=== PATIENT | female | born 1990 | race Caucasian/White ===

== ENCOUNTER 2018-09-20 16:06 | Emergency (ER) | payer BC, OTHER ==
--- NOTE | 2018-09-20 17:41 | ER Document Report ---
ED Medical Screen (RME) - General Chief Complaint: Vaginal Bleeding Stated Complaint: VAGINAL BLEEDING Time Seen by Provider: 09/20/18 17:29 Mode of Arrival: Ambulatory Information source: Patient Notes: This is a 28-year-old female 1 para 0, who is 19 weeks and 1 day who presents to the emergency room with passing some bright red blood. Patient denies any abdominal pain or abdominal cramping. Patient does have a history of a LEEP so [facility] and she is been getting transvaginal sonography for cervical length every 2 weeks. Patient 's last cervical length was 3.9 cm. Discussed with ultrasound who will assess patient with ultrasound. They may be able to see the cervical length transabdominally, they will do a labial ultrasound if need be. Discussed case with Dr. Walden regarding the above. TRAVEL OUTSIDE OF THE [place] IN LAST 30 DAYS: No - Related Data Allergies/Adverse Reactions: No Known Allergies Allergy (Unverified 09/20/18 16:10) Past Medical History - General Last Menstrual Period: 05/02/2018 - Social History Chew tobacco use (# tins/day): No Frequency of alcohol use: None Drug Abuse: None Renal/ Medical History: Denies: Hx Peritoneal Dialysis Physical Exam - Vital signs Vitals: Temp Pulse Resp BP Pulse Ox 98.2 F 115 H 12 132/68 H 99 09/20/18 16:12 09/20/18 16:12 09/20/18 16:12 09/20/18 16:12 09/20/18 16:12 Course - Vital Signs Vital signs: Temp Pulse Resp BP Pulse Ox 98.2 F 115 H 12 132/68 H 99 09/20/18 16:12 09/20/18 16:12 09/20/18 16:12 09/20/18 16:12 09/20/18 16:12 Doctor's Discharge - Discharge Referrals: GABINO GARCIA MD [Primary Care Provider] - Follow up as needed
[2018-09-20 18:44] LABS: ABSOLUTE EOSINOPHILS # (AUTO) 0.1 10^3/uL (0.0-0.6); ABSOLUTE LYMPHOCYTES (AUTO) 1.6 10^3/uL (0.5-4.7); ABSOLUTE MONOCYTES (AUTO) 0.8 10^3/uL (0.1-1.4); ABSOLUTE NEUT (AUTO) 8.8 10^3/uL (1.7-8.2); BASOPHILS % (AUTO) 0.1 % (0-2); EOSINOPHILS % (AUTO) 0.6 % (0-6); HEMATOCRIT 34.3 % (36.0-47.0); HEMOGLOBIN 11.9 g/dL (12.0-15.5); LYMPHOCYTES % (AUTO) 14.1 % (13-45); MEAN CORPUSCULAR HEMOGLOBIN 30.6 pg (27.0-33.4); MEAN CORPUSCULAR HGB CONC 34.6 g/dL (32.0-36.0); MEAN CORPUSCULAR VOLUME 89 fl (80-97); MONOCYTES % (AUTO) 6.7 % (3-13); PLATELET COUNT 287 10^3/uL (150-450); RED BLOOD COUNT 3.87 10^6/uL (3.72-5.28); RED CELL DISTRIBUTION WIDTH 12.6 % (11.5-14.0); SEGMENTED NEUTROPHILS % (AUTO) 78.5 % (42-78); TOTAL CELLS COUNTED % (AUTO) 100 %; WHITE BLOOD COUNT 11.3 10^3/uL (4.0-10.5)
[2018-09-20 18:56] LABS: APPEARANCE,URINE SLIGHTLY-CLOUDY; BILIRUBIN,URINE NEGATIVE (NEGATIVE); COLOR,URINE YELLOW; GLUCOSE, URINE 50 mg/dL (NEGATIVE); KETONES,URINE NEGATIVE (NEGATIVE); LEUKOCYTE ESTERASE,URINE NEGATIVE (NEGATIVE); NITRITE,URINE NEGATIVE (NEGATIVE); PROTEIN,URINE NEGATIVE (NEGATIVE); URINE SPECIFIC GRAVITY 1.012; UROBILINOGEN,URINE NEGATIVE mg/dL (<2.0)
--- NOTE | 2018-09-20 19:05 | ER Document Report ---
ED GI/ - General Chief Complaint: Vaginal Bleeding Stated Complaint: VAGINAL BLEEDING Time Seen by Provider: 09/20/18 17:29 Mode of Arrival: Ambulatory Notes: Patient is a 28-year-old female, at 19 weeks gestation, comes emergency department for chief complaint of vaginal bleeding. She states that she noticed some blood in the toilet and some spotting when wiping. She denies any pain or cramping. She denies nausea, vomiting, fever. Past medical history of a LEEP procedure, as a result she has been getting cervical length tested every 2 weeks (she has had this twice now). Previous cervical length with 3.9 cm. TRAVEL OUTSIDE OF THE [place] IN LAST 30 DAYS: No - Related Data Allergies/Adverse Reactions: No Known Allergies Allergy (Unverified 09/20/18 16:10) Past Medical History - General Information source: Patient Last Menstrual Period: 05/02/2018 - Social History Smoking Status: Former Smoker Chew tobacco use (# tins/day): No Frequency of alcohol use: None Drug Abuse: None Lives with: Family Family History: Reviewed & Not Pertinent Patient has suicidal ideation: No Patient has homicidal ideation: No - Medical History Medical History: Negative Renal/ Medical History: Denies: Hx Peritoneal Dialysis Surgical Hx: Negative - Immunizations Immunizations up to date: Yes Hx Diphtheria, Pertussis, Tetanus Vaccination: Yes Review of Systems - Review of Systems Constitutional: No symptoms reported EENT: No symptoms reported Cardiovascular: No symptoms reported Respiratory: No symptoms reported Gastrointestinal: See HPI Genitourinary: See HPI Female Genitourinary: See HPI Musculoskeletal: No symptoms reported Skin: No symptoms reported Hematologic/Lymphatic: No symptoms reported Neurological/Psychological: No symptoms reported Physical Exam - Vital signs Vitals: Temp Pulse Resp BP Pulse Ox 98.2 F 115 H 12 132/68 H 99 09/20/18 16:12 09/20/18 16:12 09/20/18 16:12 09/20/18 16:12 09/20/18 16:12 - Notes Notes: GENERAL: Alert, interacts well. No acute distress. HEAD: Normocephalic, atraumatic. EYES: Pupils equal, round, and reactive to light. Extraocular movements intact. ENT: Oral mucosa moist, tongue midline. Oropharynx unremarkable. Airway patent. Nares patent, no nasal septal hematoma, TM's intact. NECK: Full range of motion. Supple. Trachea midline. LUNGS: Clear to auscultation bilaterally, no wheezes, rales, or rhonchi. No respiratory distress. HEART: Regular rate and rhythm. No murmur ABDOMEN: Soft, non-tender. Non-distended. Bowel sounds present in all 4 quadrants. GENITOURINARY: Deferred EXTREMITIES: Moves all 4 extremities spontaneously. No edema, normal radial and dorsalis pedis pulses bilaterally. No cyanosis. BACK: no cervical, thoracic, lumbar midline tenderness. No saddle anesthesia, normal distal neurovascular exam. NEUROLOGICAL: Alert and oriented x3. Normal speech. [cranial nerves II through XII grossly intact]. PSYCH: Normal affect, normal mood. SKIN: Warm, dry, normal turgor. No rashes or lesions noted. Course - Re-evaluation Re-evalutation: CBC unremarkable, RhoGam is indicated, RhoGam was given. Urinalysis nonspecific. Ultrasound with normal parameters except for cervix which is 3.1 cm instead of 3.9 as reported previously by patient. I have no data on this in the system. I did call and speak with Dr. Walden, PRODUCT MARKETING DIRECTOR, he does not have any additional recommendations at this time based on patient's presentation, exam, workup which was reported. He states that patient needs pelvic rest and close follow-up. I discussed this in the report with patient in detail, patient and significant other state understanding and agreement. - Vital Signs Vital signs: Temp Pulse Resp BP Pulse Ox 98.6 F 98 18 121/65 98 09/20/18 21:13 09/20/18 21:13 09/20/18 21:13 09/20/18 21:13 09/20/18 21:13 - Laboratory Result Diagrams: 09/20/18 18:15 Laboratory results interpreted by me: 09/20/18 09/20/18 18:15 18:15 WBC 11.3 H Hgb 11.9 L Hct 34.3 L Seg Neutrophils % 78.5 H Absolute Neutrophils 8.8 H Urine Glucose (UA) 50 H Urine Blood MODERATE H Discharge - Discharge Clinical Impression: Vaginal bleeding before 22 weeks gestation Condition: Stable Disposition: HOME, SELF-CARE Additional Instructions: The appears normal at this time. The cervical length is 3.1 on the measurement today. I called and spoke with Dr. Rylan Walden. Recommendation is pelvic rest and close follow-up within a week for additional evaluation and management. Avoid lifting/jumping/running/sexual intercourse until cleared by PRODUCT MARKETING DIRECTOR. Return the emergency department for any concerning symptoms including heavy bleeding, passing out, severe pain, or any other concerning or worsening symptoms. Forms: Return to Work Referrals: HENRIQUE WALDEN MD [ACTIVE STAFF] - Follow up tomorrow
--- NOTE | 2018-09-20 19:05 | RADIOLOGY REPORT (SQ) ---
EXAM DESCRIPTION: U/S PROFILE W/O STRESS COMPLETED DATE/TIME: 09/20/2018 6:57 pm REASON FOR STUDY: BPP and cervical length COMPARISON: None. TECHNIQUE: Limited banda-scale realtime and static images of the fetus to measure specified parameter s. LIMITATIONS: None. FINDINGS: HEART RATE: 147 beats per minute. WADE: 11.6 cm. BREATHING MOVEMENT: 2 points. MOVEMENT: 2 points. POSTURE AND TONE: 2 points. QUALITATIVE WADE: 2 points. OTHER: Cervix 3.1 cm and closed. Placenta is posterior. Vertex lie. IMPRESSION: BIOPHYSICAL PROFILE: 05/26. Trimester of : Seconds trimester COMMENT: BREATHING MOVEMENTS: 2 POINTS: PRESENT 0 POINTS: ABSENT MOTION: 2 POINTS: PRESENT 0 POINTS: ABSENT TONE: 2 POINTS: PRESENT 0 POINTS: ABSENT AMNIOTIC FLUID VOLUME: 2 POINTS: LARGEST POCKET GREATER THAN 2 CM DEPTH. 0 POINTS: NO POCKET OF 2 CM. TECHNICAL DOCUMENTATION: JOB ID: [id number] [employer]- All Rights Reserved Reading location - IP/workstation name: [email or web address]
[2018-09-20 21:14] VITALS: BP 121/65
== END 2018-09-20 21:14 | disposition home or self-care (01) ==
LOC: ER 16:06
DX: O46.92 Antepartum hemorrhage, unspecified, second trimester (principal); Z3A.19 19 weeks gestation of pregnancy; Z98.890 Other specified postprocedural states; Z87.891 Personal history of nicotine dependence
CPT/HCPCS: 99284; 96372; 86900; 86901; 36415; 86850; 85025; 81001; 76819; J2790

== ENCOUNTER 2019-02-01 10:23 | Outpatient (CLI) | payer BC ==
--- NOTE | 2019-02-01 12:26 | Non Stress Test Report ---
Non Stress Test Datetime Report Generated by CPN: 02/01/2019 12:26 DEMOGRAPHIC EGA NST: 38.1 INDICATION Indication for Study: Ordered by Provider MONITORING Monitor Explained: Monitor Explained; Test Explained; Patient Verbalized Understanding Time on Monitor: 02/01/2019 10:31 Time off Monitor: 02/01/2019 11:34 NST Duration: 63 NST INTERVENTIONS NST Interventions: PO Hydration; Reposition Patient Physician Notified NST: Kristie Pena, [facility] BABY A: [id number] BABY A Movement : Present Movement : Present Contraction Frequency : NONE FHR Baseline : 135 Accelerations : 15X15 Decelerations : None Variability : Moderate 6-25bpm NST Review: Meets Criteria for Reactive NST NST Review and Verified By : MORRIS Garcia Results: Reactive NST REPORT Report Trigger: Send Report
--- NOTE | 2019-02-01 12:50 | RADIOLOGY REPORT (SQ) ---
EXAM DESCRIPTION: U/S OB LIMITED COMPLETED DATE/TIME: 02/01/2019 12:31 pm REASON FOR STUDY: check WADE COMPARISON: None. TECHNIQUE: Limited transabdominal grayscale ultrasound for evaluation of specific requested obstetri karen parameters. LIMITATIONS: None. FINDINGS: WDAE: 7.1 cm. FHR: 136 beats per minute. PRESENTATION: Cephalic. PLACENTA: Posterior ANATOMY: Not assessed OTHER: No other significant findings. IMPRESSION: LIMITED OBSTETRICAL ULTRASOUND WITH MEASURED PARAMETERS DELINEATED ABOVE. Trimester of : Third trimester - 28 weeks to delivery. TECHNICAL DOCUMENTATION: JOB ID: [id number] [employer]- All Rights Reserved Reading location - IP/workstation name: [email or web address]
== END 2019-02-01 12:45 | disposition home or self-care (01) ==
LOC: LC 10:23
PROVIDERS: ATTEND Obstetrics & Gynecology
PROC: 4A1HXCZ Monitoring of Products of Conception, Cardiac Rate, External Approach (ICD-10-PCS; principal; 2019-02-01)
DX: O47.1 False labor at or after 37 completed weeks of gestation (principal); Z3A.38 38 weeks gestation of pregnancy
CPT/HCPCS: 59025; 76815

== ENCOUNTER 2019-02-03 15:01 | Outpatient (CLI) | payer BC ==
--- NOTE | 2019-02-03 17:45 | Non Stress Test Report ---
Non Stress Test Datetime Report Generated by CPN: 02/03/2019 17:45 DEMOGRAPHIC EGA NST: 38.3 INDICATION Indication for Study: Ordered by Provider MONITORING Monitor Explained: Monitor Explained; Test Explained; Patient Verbalized Understanding Time on Monitor: 02/03/2019 15:08 Time off Monitor: 02/03/2019 16:06 NST Duration: 58 NST INTERVENTIONS NST Interventions: PO Hydration Physician Notified NST: P.Centeno, CNM BABY A: [id number] BABY A Movement : Present Contraction Frequency : irritability FHR Baseline : 130 Accelerations : 15X15 Decelerations : None Variability : Moderate 6-25bpm NST Review: Meets Criteria for Reactive NST NST Review and Verified By : Radha Vance RN NST Results: Reactive NST REPORT Report Trigger: Send Report
== END 2019-02-03 16:12 | disposition home or self-care (01) ==
LOC: LC 15:01
PROVIDERS: ATTEND Obstetrics & Gynecology
PROC: 4A1HXCZ Monitoring of Products of Conception, Cardiac Rate, External Approach (ICD-10-PCS; principal; 2019-02-03)
DX: Z34.83 Encounter for supervision of other normal pregnancy, third trimester (principal); Z3A.38 38 weeks gestation of pregnancy
CPT/HCPCS: 59025

== ENCOUNTER 2019-02-07 14:35 | Outpatient (CLI) | payer BC ==
[2019-02-07 15:19] LABS: HEMATOCRIT 32.8 % (36.0-47.0); HEMOGLOBIN 11.2 g/dL (12.0-15.5); MEAN CORPUSCULAR HEMOGLOBIN 30.7 pg (27.0-33.4); MEAN CORPUSCULAR HGB CONC 34.3 g/dL (32.0-36.0); MEAN CORPUSCULAR VOLUME 90 fl (80-97); PLATELET COUNT 196 10^3/uL (150-450); RED BLOOD COUNT 3.66 10^6/uL (3.72-5.28); RED CELL DISTRIBUTION WIDTH 13.9 % (11.5-14.0); WHITE BLOOD COUNT 7.5 10^3/uL (4.0-10.5)
[2019-02-07 15:30] LABS: APPEARANCE,URINE SLIGHTLY-CLOUDY; BILIRUBIN,URINE NEGATIVE (NEGATIVE); COLOR,URINE YELLOW; GLUCOSE, URINE NEGATIVE (NEGATIVE); KETONES,URINE NEGATIVE (NEGATIVE); LEUKOCYTE ESTERASE,URINE NEGATIVE (NEGATIVE); NITRITE,URINE NEGATIVE (NEGATIVE); PROTEIN,URINE NEGATIVE (NEGATIVE); URINE SPECIFIC GRAVITY 1.017; UROBILINOGEN,URINE NEGATIVE mg/dL (<2.0)
[2019-02-07 15:39] LABS: ALANINE AMINOTRANSFERASE 18 U/L (9-52); ALBUMIN 3.1 g/dL (3.5-5.0); ALKALINE PHOSPHATASE 118 U/L (38-126); ANION GAP 5 (5-19); ASPARTATE AMINO TRANSFERASE 19 U/L (14-36); BILIRUBIN,DIRECT 0.1 mg/dL (0.0-0.4); BILIRUBIN,TOTAL 0.4 mg/dL (0.2-1.3); BLOOD UREA NITROGEN 9 mg/dL (7-20); CALCIUM 9.4 mg/dL (8.4-10.2); CARBON DIOXIDE 21 mmol/L (22-30); CHLORIDE 110 mmol/L (98-107); GLUCOSE 95 mg/dL (75-110); POTASSIUM 4.3 mmol/L (3.6-5.0); SODIUM 136.4 mmol/L (137-145); TOTAL PROTEIN 5.9 g/dL (6.3-8.2); URIC ACID 4.3 mg/dL (2.5-6.2)
[2019-02-07 15:48] LABS: URINE AMPHETAMINES SCREEN NEGATIVE; URINE BARBITURATES SCREEN NEGATIVE; URINE BENZODIAZEPINES SCREEN NEGATIVE; URINE COCAINE SCREEN NEGATIVE; URINE MARIJUANA (THC) SCREEN NEGATIVE; URINE METHADONE SCREEN NEGATIVE; URINE PHENCYCLIDINE SCREEN NEGATIVE
[2019-02-07 15:50] LABS: UR PRO/CREAT RATIO RESULT 0.2 mg/mg (0.0-0.2); URINE CREATININE 84.6 mg/dL (16-327); URINE PROTEIN 20.7 mg/dL (<12)
== END 2019-02-07 16:45 | disposition home or self-care (01) ==
LOC: LC 14:35
PROVIDERS: ATTEND Obstetrics & Gynecology
PROC: 4A1HXCZ Monitoring of Products of Conception, Cardiac Rate, External Approach (ICD-10-PCS; principal; 2019-02-07)
DX: O16.3 Unspecified maternal hypertension, third trimester (principal); Z3A.39 39 weeks gestation of pregnancy
CPT/HCPCS: 36415; 59025; 80053; 80307; 81005; 82570; 84156; 84550; 85027

== ENCOUNTER 2019-02-11 11:08 | Outpatient (CLI) | payer BC ==
--- NOTE | 2019-02-11 11:16 | Non Stress Test Report ---
Non Stress Test Datetime Report Generated by CPN: 02/11/2019 11:15 DEMOGRAPHIC Test Number: 3 EGA NST: 39.0 INDICATION Indication for Study: Ordered by Provider VITAL SIGNS Temperature - NST: 98.4 Pulse - NST: 96 RESP - NST: 18 NBPSYS NST: 122 NBPDIA NST: 70 MONITORING Monitor Explained: Monitor Explained; Test Explained; Patient Verbalized Understanding Time on Monitor: 02/07/2019 14:53 Time off Monitor: 02/07/2019 16:30 NST Duration: 97 NST INTERVENTIONS NST Interventions: PO Hydration Physician Notified NST: N Pena CNM BABY A: [id number] BABY A Movement : Present Contraction Frequency : 0 FHR Baseline : 145 Accelerations : 15X15 Decelerations : None Variability : Moderate 6-25bpm NST Review: Meets Criteria for Reactive NST NST Review and Verified By : RAFIA HURTADO RN NST Results: Reactive NST REPORT Report Trigger: Send Report (Annotations: Data stored by PRASHANT on behalf of user)
--- NOTE | 2019-02-11 11:58 | Non Stress Test Report ---
Non Stress Test Datetime Report Generated by CPN: 02/11/2019 11:58 DEMOGRAPHIC EGA NST: 39.4 INDICATION Indication for Study: Diabetes Mellitus MONITORING Monitor Explained: Monitor Explained; Test Explained; Patient Verbalized Understanding Time on Monitor: 02/11/2019 11:16 Time off Monitor: 02/11/2019 11:57 NST Duration: 41 NST INTERVENTIONS NST Interventions: PO Hydration; Other NST Interventions Other: popsicle Physician Notified NST: N. Pena CNM BABY A Movement : Present Contraction Frequency : none FHR Baseline : 135 Accelerations : 15X15 Decelerations : None Variability : Moderate 6-25bpm NST Review: Meets Criteria for Reactive NST NST Review and Verified By : Patti Camp RNC NST Results: Reactive NST REPORT Report Trigger: Send Report
== END 2019-02-11 11:55 | disposition home or self-care (01) ==
LOC: LC 11:08
PROVIDERS: ATTEND Obstetrics & Gynecology
PROC: 4A1HXCZ Monitoring of Products of Conception, Cardiac Rate, External Approach (ICD-10-PCS; principal; 2019-02-11)
DX: O24.419 Gestational diabetes mellitus in pregnancy, unspecified control (principal); Z3A.39 39 weeks gestation of pregnancy
CPT/HCPCS: 59025

== ENCOUNTER 2019-02-20 18:10 | Inpatient (IN) | payer BC ==
[2019-02-20] MEDS ORDERED: RINGERS SOLUTION,LACTATED 300 ML IV ONE (18:14)
[2019-02-20] MEDS: RINGERS SOLUTION,LACTATED 1,000 ML IV PRN (18:30)
[2019-02-20] MEDS ORDERED: OXYTOCIN/NORMAL SALINE 20 UNIT/1,000 ML RTUINJ IV PRN (18:43)
[2019-02-20] MEDS ORDERED: DINOPROSTONE 10 MG VAGINAL INSERT.SR PV PRN (18:43)
[2019-02-20] MEDS ORDERED: DINOPROSTONE 10 MG VAGINAL INSERT.SR ONE (18:47)
[2019-02-20 18:53] LABS: ABSOLUTE LYMPHOCYTES (AUTO) 1.4 10^3/uL (0.5-4.7); ABSOLUTE MONOCYTES (AUTO) 0.8 10^3/uL (0.1-1.4); ABSOLUTE NEUT (AUTO) 6.8 10^3/uL (1.7-8.2); BASOPHILS % (AUTO) 0.1 % (0-2); EOSINOPHILS % (AUTO) 0.2 % (0-6); HEMATOCRIT 35.2 % (36.0-47.0); HEMOGLOBIN 11.8 g/dL (12.0-15.5); LYMPHOCYTES % (AUTO) 15.4 % (13-45); MEAN CORPUSCULAR HEMOGLOBIN 30.3 pg (27.0-33.4); MEAN CORPUSCULAR HGB CONC 33.6 g/dL (32.0-36.0); MEAN CORPUSCULAR VOLUME 90 fl (80-97); MONOCYTES % (AUTO) 8.5 % (3-13); PLATELET COUNT 174 10^3/uL (150-450); RED BLOOD COUNT 3.89 10^6/uL (3.72-5.28); RED CELL DISTRIBUTION WIDTH 15.8 % (11.5-14.0); SEGMENTED NEUTROPHILS % (AUTO) 75.8 % (42-78); TOTAL CELLS COUNTED % (AUTO) 100 %; WHITE BLOOD COUNT 8.9 10^3/uL (4.0-10.5)
[2019-02-20 19:04] LABS: APPEARANCE,URINE CLOUDY; BILIRUBIN,URINE NEGATIVE (NEGATIVE); COLOR,URINE YELLOW; GLUCOSE, URINE NEGATIVE (NEGATIVE); KETONES,URINE NEGATIVE (NEGATIVE); LEUKOCYTE ESTERASE,URINE LARGE (NEGATIVE); NITRITE,URINE NEGATIVE (NEGATIVE); PROTEIN,URINE 30 mg/dL (NEGATIVE); URINE SPECIFIC GRAVITY 1.013; UROBILINOGEN,URINE NEGATIVE mg/dL (<2.0)
[2019-02-20 19:06] LABS: URINE AMPHETAMINES SCREEN NEGATIVE; URINE BARBITURATES SCREEN NEGATIVE; URINE BENZODIAZEPINES SCREEN NEGATIVE; URINE COCAINE SCREEN NEGATIVE; URINE MARIJUANA (THC) SCREEN NEGATIVE; URINE METHADONE SCREEN NEGATIVE; URINE PHENCYCLIDINE SCREEN NEGATIVE
[2019-02-20] MEDS ORDERED: ZOLPIDEM TARTRATE 5 MG TABLET ONE (23:06)
[2019-02-21] MEDS ORDERED: ZOLPIDEM TARTRATE 5 MG TABLET ONE (00:50)
[2019-02-21] MEDS ORDERED: ZOLPIDEM TARTRATE 5 MG TABLET PO ONE ×2 (00:50→01:15)
[2019-02-21] MEDS: RINGERS SOLUTION,LACTATED 1,000 ML IV PRN (03:28)
[2019-02-21] MEDS ORDERED: ACETAMINOPHEN 325 MG TABLET ONE ×2 (03:32→08:40)
[2019-02-21] MEDS ORDERED: NALBUPHINE HCL INJ 10 MG/1 ML AMPULE INJ ONE (05:32)
[2019-02-21] MEDS ORDERED: PROMETHAZINE HCL INJ 25 MG/1 ML VIAL IV ONE (05:32)
[2019-02-21] MEDS ORDERED: NALBUPHINE HCL INJ 10 MG/1 ML AMPULE ONE (05:36)
[2019-02-21] MEDS ORDERED: PROMETHAZINE HCL INJ 25 MG/1 ML VIAL ONE (05:36)
[2019-02-21] MEDS ORDERED: LIDOCAINE 1% INJ-PF (10 MG/ML) 30 ML SDV ONE (06:01)
[2019-02-21] MEDS ORDERED: MISOPROSTOL 0.2 MG TABLET ONE (06:01)
[2019-02-21] MEDS ORDERED: OXYTOCIN 10 UNIT/ML VIAL ONE (06:01)
[2019-02-21] MEDS ORDERED: OXYTOCIN/NORMAL SALINE 20 UNIT/1,000 ML RTUINJ ONE (06:02)
--- NOTE | 2019-02-21 07:07 | Admission Physical ---
Datetime Report Generated by CPN: 02/21/2019 07:07 CURRENT ADMISSION Chief Complaint: Scheduled Induction of Labor Indication for Induction: Post Dates Admit Impression : Term, Intrauterine ; No Active Labor; Intact Membranes Admit Plan: Admit to Unit; Initiate Labor Induction Protocol ALLERGIES Medication Allergies: No Medication Allergies: No Known Allergies (02/11/2019) Latex: No Latex Allergies Food Allergies: none Environmental Allergies: none OBSTETRICAL HISTORY EDC: 02/14/2019 00:00 : 1 Para: 0 Term: 0 : 0 SAB: 0 IAB: 0 Ectopic: 0 Livin Cesareans: 0 VBACs: 0 Multiple Births: 0 Gestational Diabetes: No Rh Sensitization: No Incompetent Cervix: No DANIEL: No Infertility: No ART Treatment: No Uterine Anomaly: No IUGR: No Hx Previous C/S: No Macrosomia: No Hx Loss/Stillborn: No PIH: No Hx : No Placenta Previa/Abruption: No Depression/PP Depression: No PTL/PROM: No Post Hemorrhage: No Current Procedures: Ultrasound; NST Obstetrical History Comments: G1: current, abdomen measuring in 3rd percentile SEE RECORDS Alcohol: No Marijuana : No Cocaine: No Other Illicit Drugs: No Cigarettes: Never Smoker. [id number] MEDICAL HISTORY Diabetes: No Blood Transfusion: No Pulmonary Disease (Asthma, TB): No Breast Disease: No Hypertension: No [employer] Surgery: No Heart Disease: No Hosp/Surgery: No Autoimmune Disorder: No Anesthetic Complications: Yes Kidney Disease: No Abnormal Pap Smear: Yes Neuro/Epilepsy: No Psychiatric Disorders: No Other Medical Diseases: No Hepatitis/Liver Disease: No Significant Family History: No Varicosities/Phlebitis: No Trauma/Violence : No Thyroid Dysfunction: No Medical History Comments: tonsillectomy, endoscopy for H. Pylori, wisdom teeth removal, LEEP in 2014 INFECTIOUS HISTORY Gonorrhea: No Genital Herpes: No Chlamydia: No Tuberculosis: No Syphilis: No Hepatitis: No HIV/AIDS Exposure: No Rash or Viral Illness: No HPV: Yes PHYSICAL EXAM General: Normal HEENT: Normal Neurologic: Normal Thyroid: Deferred Heart: Normal Lungs: Normal Breast: Deferred Back: Normal Abdomen: Normal Genitourinary Exam: Normal Extremities: Normal DTRs: Normal Pelvic Type: Adequate Vital Signs: Reviewed VAGINAL EXAM Dilatation: 1 Effacement: 50 Station: -1 Contraction Comments: none MEMBRANES Membranes: Intact FETUS A EGA: 40.6 Monitoring: External US Decelerations: None Presentation: Vertex Admit Comment: 28yo at 41+0ega presents for scheduled IOL. Cvx 1cm. Cervidil tonight. Plan for pitocin possible pitocin/Cooks in am. h/o LEEP. Rh negative. GBS negative EFW 21% (3167g) on 02/11/2019. Admit for IOL. Anticipate PLANS FOR LABOR AND DELIVERY Labor and Delivery: None Pain Management: Epidural Feeding Preference: Breast Benefit of Breast Feed Discussed: Yes Circumcision: N/A INFORMED CONSENT Informed Consent Obtained: Vaginal Delivery; Risks, Benefits and Alternatives Discussed Signature: with User ID: [email or web address]
[2019-02-21] MEDS ORDERED: DIPH/PERTUSS(ACELL)/TETANUS VAC/PF 0.5 ML SYR (>=10YO) IM PRN (08:24)
[2019-02-21] MEDS ORDERED: NA PHOS,M-B/NA PHOS,DI-BA (ADULT) 133 ML ENEMA PR PRN (08:24)
[2019-02-21] MEDS ORDERED: ACETAMINOPHEN 325 MG TABLET PO PRN (08:24)
[2019-02-21] MEDS ORDERED: DIBUCAINE 1% OINTMENT 56 GM TP PRN (08:24)
[2019-02-21] MEDS ORDERED: PSEUDOEPHEDRINE HCL 30 MG TABLET PO PRN (08:24)
[2019-02-21] MEDS ORDERED: ACETAMINOPHEN WITH CODEINE #3 TABLET PO PRN ×2 (08:24)
[2019-02-21] MEDS ORDERED: PROMETHAZINE HCL 25 MG SUPP.RECT PR PRN (08:24)
[2019-02-21] MEDS ORDERED: MEASLES,MUMPS&RUBELLA VACC/PF 0.5 ML VIAL SUBCUT PRN (08:24)
[2019-02-21] MEDS ORDERED: OXYTOCIN/NORMAL SALINE 20 UNIT/1,000 ML RTUINJ IV PRN (08:24)
[2019-02-21] MEDS ORDERED: ZOLPIDEM TARTRATE 5 MG TABLET PO PRN (08:24)
[2019-02-21] MEDS ORDERED: PROMETHAZINE HCL 25 MG TABLET PO PRN (08:24)
[2019-02-21] MEDS ORDERED: BENZOCAINE/MENTHOL AEROSOL SPRAY 56 ML TOP PRN (08:24)
[2019-02-21] MEDS ORDERED: MAGNESIUM HYDROXIDE SUSP 30 ML UDCUP PO PRN (08:24)
[2019-02-21] MEDS ORDERED: PROMETHAZINE HCL INJ 25 MG/1 ML VIAL IV PRN (08:24)
[2019-02-21] MEDS ORDERED: DIPHENHYDRAMINE HCL 25 MG CAPSULE PO PRN (08:24)
[2019-02-21] MEDS ORDERED: ACETAMINOPHEN WITH CODEINE #3 TABLET ONE (08:36)
--- NOTE | 2019-02-21 09:50 | Delivery Summary ---
Del Sum A-C Datetime Report Generated by CPN: 02/21/2019 09:49 DELIVERY PERSONNEL DELIVERY PERSONNEL: [id number] Delivery Doctor:: Shelbie Petit MD Labor and Delivery Nurse:: Kat Oconnor RN Senior Telecommunications Specialist:: Haydee Sanabria RN Nursery Nurse:: Pilo Perez RN Nursery Nurse:: Eryn Hodge RN Student Services Vice President/SCROLL SAW OPERATOR: Sue Adair CST Student Services Vice President/SCROLL SAW OPERATOR: Sarah Oconnor CST Additional Personnel: : Vivi HeinTOMEKA mckeon II MATERNAL INFORMATION Delivery Anesthesia: Pudendal Medications After Delivery: Pitocin Bolus-Please Comment; Pitocin Drip 20 Units/1000ml NSS; Cytotec 1000mcg Per Rectum/Vagina Maternal Complications: Precipitous Labor (<3hrs) Provider Comments: Pt unable to get epidural due to precipitous labor and now c/c/+2. Reviewed options for pudendal block. Pt desires pudendal block. Pudendal block performed in usual fashion. Pt tolerated well. VFI delivered in Direct OA. No nuchal cord. Shoulders and body delivered without difficulty. Cord doubly clamped and cut and to maternal abd for NRP. Placenta delivered intact with trailing membranes which were removed with manual exploration of uterus. FF at U. Cytotec 1000mcg per rectum placed for uterine tone. 2nd degree perineal laceration repaired with good hemostasis. Mother and baby stable upon provider leaving the room. LABOR SUMMARY EDC: 02/14/2019 00:00 No. Babies in Womb: 1 Attempted: No Labor Anesthesia: IV Sedation LABOR INFORMATION Reason for Induction: Post Dates Onset of Labor: 02/21/2019 05:26 Complete Dilatation: 02/21/2019 07:23 Cervical Ripening Agents: Cervidil Oxytocin: N/A Group B Beta Strep: Negative Antibiotics # of Doses: 0 Steroids Given: None Reason Steroids Not Administered: Not Applicable MEMBRANES Membranes Rupture Method: Spontaneous Rupture of Membranes: 02/21/2019 05:26 Length of Rupture (hr): 2.17 Amniotic Fluid Color: Light Meconium Amniotic Fluid Amount: Small STAGES OF LABOR Stage 1 hr: 1 Stage 1 min: 57 Stage 2 hr: 0 Stage 2 min: 13 Stage 3 hr: 0 Stage 3 min: 3 Total Time in Labor hr: 2 Total Time in Labor min: 13 VAGINAL DELIVERY Episiotomy: None Laceration #1: Perineal Laceration Extension #1: Second Degree Laceration Repair: Yes Laceration Repair Note: 2nd degree perineal laceration repaired in usual fashion. Sponge Count Correct: Yes Sharps Count Correct: Yes CSECTION DELIVERY Primary Indication: N/A Secondary Indication: N/A CSection Incidence: N/A Labor: N/A Elective: N/A CSection Incision: N/A BABY A INFORMATION Delivery Date/Time: 02/21/2019 07:36 Method of Delivery: Vaginal Born in Route : No : N/A Forceps: N/A Vacuum Extraction: N/A Shoulder Dystocia : No PRESENTATION/POSITION BABY A Presentation: Cephalic Cephalic Presentation: Vertex Vertex Position: OA Breech Presentation: N/A PLACENTA INFORMATION BABY A Placenta Delivery Time : 02/21/2019 07:39 Placenta Method of Delivery: Spontaneous Placenta Status: Delivered SCORES BABY A Heart Rate 1 min: >100 bpm Resp Effort 1 min: Good Cry Reflex Irritability 1 min: Cough or Sneeze or Pulls Away Muscle Tone 1 min: Active Motion Color 1 min: Blue/Pale Resuscitation Effort 1 min: Tactile Stimulation SCORE 1 MIN: 8 Heart Rate 5 min: >100 bpm Resp Effort 5 min: Good Cry Reflex Irritability 5 min: Cough or Sneeze or Pulls Away Muscle Tone 5 min: Active Motion Color 5 min: Body Lund, Extremities Blue Resuscitation Effort 5 min: Tactile Stimulation SCORE 5 MIN: 9 INFORMATION BABY A Gestational Age at Delivery: 41.0 Gestational Status: Late Term- 41- 41.6 Weeks Infant Outcome : Liveborn Condition : Stable Infant Sex: Male IDENTIFICATION BABY A Verification Date/Time: 02/21/2019 07:47 ID Band Number: [id number] Mother's Name Verified: Yes RN Verifying : M HILL RN, A. Hein SCROLL SAW OPERATOR WEIGHT/LENGTH BABY A Birthweight (gm): 3038 Weight (lb): 6 Infant Weight (oz): 11 Length (in): 20.25 Length (cm): 51.44 CORD INFORMATION BABY A No. Cord Vessels: 3 Nuchal Cord : N/A Cord Blood Taken: Yes-For Storage (Mom's Blood type +) Suction: None ASSESSMENT BABY A Complications: None Physical Findings at Delivery: Within Normal Limits Infant Respirations: Appears Normal Skin to Skin: Yes Care By: MORRIS Bautista Transferred To: Remains with Mother BABY B INFORMATION : N/A SIGNATURES Signature: with User ID: [email or web address]
[2019-02-21] MEDS: GLYCERIN/WITCH HAZEL LEAF 1 EACH MED..WIPE TP PRN (11:30)
[2019-02-21] MEDS: FERROUS SULFATE 325 MG TABLET PO SCH ×2 (13:09→17:33)
[2019-02-21] MEDS: FAMOTIDINE 20 MG TABLET PO SCH ×2 (13:09→21:33)
[2019-02-21] MEDS: PRENATAL VITAMIN W DHA CAPSULE PO SCH (13:09)
[2019-02-21] MEDS: DOCUSATE SODIUM 100 MG CAPSULE PO SCH ×2 (13:09→17:33)
[2019-02-21] MEDS: SENNOSIDES/DOCUSATE 8.6-50 MG 1 EACH TABLET PO SCH (13:09)
[2019-02-21] MEDS: IBUPROFEN 800 MG TABLET PO SCH ×2 (14:03→21:33)
[2019-02-22] MEDS: IBUPROFEN 800 MG TABLET PO SCH ×3 (06:10→22:07)
[2019-02-22 07:08] LABS: HEMATOCRIT 28.7 % (36.0-47.0); HEMOGLOBIN 9.9 g/dL (12.0-15.5); MEAN CORPUSCULAR HGB CONC 34.3 g/dL (32.0-36.0); MEAN CORPUSCULAR VOLUME 90 fl (80-97); PLATELET COUNT 160 10^3/uL (150-450); RED BLOOD COUNT 3.19 10^6/uL (3.72-5.28); RED CELL DISTRIBUTION WIDTH 15.8 % (11.5-14.0); WHITE BLOOD COUNT 10.5 10^3/uL (4.0-10.5)
[2019-02-22] MEDS: FAMOTIDINE 20 MG TABLET PO SCH ×2 (09:09→22:07)
[2019-02-22] MEDS: FERROUS SULFATE 325 MG TABLET PO SCH ×2 (09:09→17:32)
[2019-02-22] MEDS: GLYCERIN/WITCH HAZEL LEAF 1 EACH MED..WIPE TP PRN (09:09)
[2019-02-22] MEDS: SENNOSIDES/DOCUSATE 8.6-50 MG 1 EACH TABLET PO SCH (09:09)
[2019-02-22] MEDS: DOCUSATE SODIUM 100 MG CAPSULE PO SCH ×2 (09:09→17:32)
[2019-02-22] MEDS: PRENATAL VITAMIN W DHA CAPSULE PO SCH (09:09)
--- NOTE | 2019-02-22 09:50 | PDOC PROGRESS REPORT ---
Subjective-OB Progress Note for:: 02/22/19 - PP day#1, doing well, , A neg, rubella immune Physical Exam (OB) Vital Signs: Temp Pulse Resp BP Pulse Ox 98.2 F 87 16 106/59 L 95 02/22/19 07:49 02/22/19 07:49 02/22/19 07:49 02/22/19 07:49 02/22/19 07:49 Intake & Output 02/21/19 02/22/19 02/23/19 06:59 06:59 06:59 Intake Total 1000 Balance 1000 Weight 90.8 kg - General General Appearance: Appears well, Alert In distress: None - PIH/Pre-Eclampsia DTR's: 1 + Clonus: Negative Headache: Absent Epigastric Pain: No Visual Changes: No - Lochia Lochia Amount: Small 10-25 ml Lochia Color: Rubra/Red - Abdomen Description: Soft, Round Hernia Present: No Fundal Description: Midline Fundal Height: u/u - u/2 - Respiratory Respiratory Status: No respiratory distress - Abdominal Distension: No distension Tenderness: Nontender - Genitourinary Genitourinary Note: voiding - Extremities Upper extremity: Normal inspection Lower extremities: Normal inspection - Neurological Cognition: Normal Orientation: AAOx4 - Psychological Associated symptoms: Normal affect, Normal mood - Skin Skin Temperature: Warm Skin Moisture: Dry Objective-Diagnostic Laboratory: 02/22/19 06:53 02/22/19 06:53 WBC 10.5 RBC 3.19 L Hgb 9.9 L Hct 28.7 L MCV 90 MCH 31.0 MCHC 34.3 RDW 15.8 H Plt Count 160 Assessment and Plan(PN) - Assessment and Plan (1) Post-term , 40-42 weeks of gestation Is this a current diagnosis for this admission?: Yes (2) Precipitous delivery Is this a current diagnosis for this admission?: Yes (3) Second degree perineal laceration, delivered, current hospitalization Is this a current diagnosis for this admission?: Yes - Time Spent with Patient Time with patient: Less than 15 minutes Medications reviewed and adjusted accordingly: Yes - Disposition Anticipated Discharge: Home Within: within 24 hours
[2019-02-23] MEDS: IBUPROFEN 800 MG TABLET PO SCH ×2 (05:55→13:40)
[2019-02-23 08:06] VITALS: BP 119/71
[2019-02-23] MEDS: PRENATAL VITAMIN W DHA CAPSULE PO SCH (09:20)
[2019-02-23] MEDS: FERROUS SULFATE 325 MG TABLET PO SCH (09:20)
[2019-02-23] MEDS: FAMOTIDINE 20 MG TABLET PO SCH (09:20)
[2019-02-23] MEDS: SENNOSIDES/DOCUSATE 8.6-50 MG 1 EACH TABLET PO SCH (09:20)
[2019-02-23] MEDS: DOCUSATE SODIUM 100 MG CAPSULE PO SCH (09:20)
[2019-02-23] MEDS: GLYCERIN/WITCH HAZEL LEAF 1 EACH MED..WIPE TP PRN (10:36)
--- NOTE | 2019-02-23 11:42 | PDOC DISCHARGE SUMMARY ---
Final Diagnosis Discharge Date: 02/23/19 - Final Diagnosis (1) Second degree perineal laceration, delivered, current hospitalization Is this a current diagnosis for this admission?: Yes (2) Precipitous delivery Is this a current diagnosis for this admission?: Yes (3) Post-term , 40-42 weeks of gestation Is this a current diagnosis for this admission?: Yes Discharge Data - Discharge Medication Prescriptions: Ibuprofen [Motrin 800 mg Tablet] 800 mg PO Q8HP PRN #30 tablet PRN Reason: Abdominal Cramping Docusate Sodium [Colace 100 mg Capsule] 100 mg PO BID #60 capsule Ferrous Sulfate [Feosol 325 mg Tablet] 325 mg PO BID #60 tablet Home Medications: Pnv No.95/Ferrous Fum/Folic AC [ Caplet] 1 tab PO DAILY 02/01/19 Ranitidine HCl [Zantac 150 mg Tablet] 1 tab PO DAILY 02/01/19 Docusate Sodium [Colace 100 mg Capsule] 100 mg PO BID #60 capsule 02/23/19 Ferrous Sulfate [Feosol 325 mg Tablet] 325 mg PO BID #60 tablet 02/23/19 Ibuprofen [Motrin 800 mg Tablet] 800 mg PO Q8HP PRN #30 tablet 02/23/19 Reason(s) for Admission: Induction of Labor Procedures: NST, Ultrasound Intrapartum Procedure(s): Spontaneous Vaginal Delivery Complication(s): Laceration-Perineal Laceration-Degree: 2nd - Diagnosis Test Laboratory: Temp Pulse Resp BP Pulse Ox 98.2 F 90 16 119/71 96 02/23/19 10:05 02/23/19 10:05 02/23/19 10:05 02/23/19 10:05 02/23/19 10:05 02/20/19 02/20/19 02/22/19 18:27 18:40 06:53 RBC 3.89 3.19 L Hgb 11.8 L 9.9 L Hct 35.2 L 28.7 L Urine Opiates Screen NEGATIVE - Discharge information/Instructions Discharge Activity: Activity As Tolerated, Balance Activity w/Rest, No Lifting Over 10 Pounds, Pelvic Rest, No tub bath, Walk Frequently Discharge Diet: As Tolerated, Regular Disposition: HOME, SELF-CARE [facility]: [facility] in: 5, Weeks
== END 2019-02-23 18:30 | disposition home or self-care (01) | DRG 807 ==
LOC: UNDOADMIN 18:10 → LR 18:10 → 2S 02-21 10:10
PROVIDERS: ADMIT Student in an Organized Health Care Education/Training Program; ATTEND Student in an Organized Health Care Education/Training Program
PROC: 4A1HXCZ Monitoring of Products of Conception, Cardiac Rate, External Approach (ICD-10-PCS; 2019-02-20)
PROC: 10E0XZZ Delivery of Products of Conception, External Approach (ICD-10-PCS; principal; 2019-02-21)
PROC: 0KQM0ZZ Repair Perineum Muscle, Open Approach (ICD-10-PCS; 2019-02-21)
PROC: 3E0P7VZ Introduction of Hormone into Female Reproductive, Via Natural or Artificial Opening (ICD-10-PCS; 2019-02-21)
DX: O48.0 Post-term pregnancy (principal); Z37.0 Single live birth; O70.1 Second degree perineal laceration during delivery; O62.3 Precipitate labor; Z3A.41 41 weeks gestation of pregnancy
CPT/HCPCS: 36415; 80307; 81001; 85025; 85027; 86592; 86850; 86900; 86901; J2300; J2550; J2590; J3490